=== PATIENT | female | born 1980 | race Hispanic/Latino ===

== ENCOUNTER → 2025-01-30 | Outpatient (CLI) | payer OTHER ==
--- NOTE | 2025-01-30 15:27 | HMCIMG ---
Exam Type: MR KNEE LEFT WO Clinical Information: L KNEE STRAIN Comparison: None Findings: Medial and lateral compartment articular cartilage loss. Moderate joint effusion. Complex tear anterior horn lateral meniscus with superior articular surface involvement. Medial meniscus is preserved. Anterior and posterior cruciate ligaments are intact. IMPRESSION: Degenerative changes. Lateral meniscal tear.
== END | disposition home or self-care (01) ==
LOC: RAH 14:01
PROVIDERS: ATTEND Family Medicine
DX: S83.282A Other tear of lateral meniscus, current injury, left knee, initial encounter (principal); S86.912A Strain of unspecified muscle(s) and tendon(s) at lower leg level, left leg, initial encounter; M17.12 Unilateral primary osteoarthritis, left knee; M25.462 Effusion, left knee; X58.XXXA Exposure to other specified factors, initial encounter; Y93.89 Activity, other specified; Y92.89 Other specified places as the place of occurrence of the external cause; Y99.8 Other external cause status
CPT/HCPCS: 73721